=== PATIENT | female | born 1985 | race Caucasian/White ===

== ENCOUNTER → 2016-08-09 | Outpatient (CLI) | payer OTHER ==
[~2016-08-09] MED LIST: AZIT500T3 PO; CHLO1TAB47
== END | disposition home or self-care (01) ==
LOC: C.PAPS 09:28
PROVIDERS: ATTEND Obstetrics & Gynecology
DX: Z01.411 Encounter for gynecological examination (general) (routine) with abnormal findings (principal); R87.610 Atypical squamous cells of undetermined significance on cytologic smear of cervix (ASC-US)

== ENCOUNTER → 2017-01-05 | Outpatient (CLI) | payer OTHER | END | disposition home or self-care (01) | LOC: C.LAB 19:14 | DX: Z02.83 Encounter for blood-alcohol and blood-drug test (principal) ==

== ENCOUNTER 2022-08-26 00:38 | Inpatient (IN) ==
[2022-08-26] MEDS ORDERED: PENICILLIN G POTASSIUM 6 MU in DEXTROSE 5% 250 ML IV STA (01:24)
[2022-08-26] MEDS ORDERED: OXYTOCIN 30 UNITS/500 ML BAG IV PRN ×3 (01:24→08:50)
[2022-08-26] MEDS ORDERED: LIDOCAINE 1% LOCAL 20 ML VIAL INFIL PRN (01:24)
[2022-08-26] MEDS: LACTATED RINGER'S 1,000 ML IV PRN ×2 (01:24→02:20)
[2022-08-26] MEDS ORDERED: ePHEDrine sulfate 50 MG/ML AMP ONE (01:31)
[2022-08-26] MEDS ORDERED: fentaNYL citrate 100 MCG/2 ML VIAL ONE (01:32)
[2022-08-26] MEDS ORDERED: BUPIVACAINE 0.25% 30 ML VIAL ONE (01:32)
[2022-08-26] MEDS ORDERED: SODIUM CHLORIDE 0.9% INJ 10 ML VIAL ONE (01:32)
[2022-08-26] MEDS ORDERED: LIDOCAINE 2%/EPINEPHRINE 1:200,000 20 ML SDV ONE (01:32)
[2022-08-26] MEDS ORDERED: fentaNYL 2MCG/ML ROPIVACAINE 1.25MG/ML 100 ML BAG EPI ONE (01:32)
--- NOTE | 2022-08-26 01:39 | History & Physical Report ---
Date of Service August 26, 2022 Assessment & Plan (1) Twin : (2) Supervision of elderly multigravida: (3) SROM (spontaneous rupture of membranes): Plan di/di twin at 36 weeks by good dating with srom and labor. with two previous vaginal deliveries. new fob. Patient has always been desirous of a vaginal delivery. Right now they are vertex/vertex. Offered primary c/s, declines. Will plan for attempt at vaginal delivery with a double set up in the OR. Will have second provider here to run the ultrasound and assist should c/s become necessary. fetus category one x 2. Babies are very concordant in growth with baby A just slightly larger than B. Discussed the issues associated with delivery of baby B--hopefully will guide cephalic into the pelvis, arom and then deliver vaginally. HOwever, if baby flips breech and /or nrfht of baby B after delivery or during delivery of baby A, would proceed with potentially urgent/emergent c/s. That may mean general anesthesia where fob could not be present. Discussed that I do not do breech extraction. Patient and fob accept the potential limitations of above and agree to proceed with attempt at vaginal delivery. The risks of a c/s were discussed with the patient including anesthesia, bleeding, transfusion, infection, poor wound healing, damage to surrounding structures, need for further surgery, injury to the baby. Peds is aware. Would be too late for transfer at this point. Questions asked and answered to the best of my ability. History of Present Illness Chief Complaint: rom, twins Primary Care Provider: Todd Weiner, Patient is a 38yowf who presents to labor and delivery with di/di twins at 36 1/7 weeks who presents to labor and delivery with gross rupture, clear around 12:30. Notes onset of contractions. Was 3-4cm in the office at last check. Last formal ultrasound A--cephalic, ac 50, efw 32%, 1979gm, 4#10oz B--cephalic, ac 14, efw 16%, 1840fm, 4#6oz and Delivery Plans AMA Weekly NST's @ 36 weeks DI/DI Twins *Baby ASA daily start 12-28wks until delivery *Anatomy scan @20wks *Serial growth US/S starting @24wks *Wkly NST's @32wks, twice wkly @36wks(nml growth) *Twice wkly NST's @32wks, ICSI or abnml growth *MD visits Q2wks @24wks & Qwk @32wks *DI/DI Deliver @38wks -IOL 09/11/22 with [place] Hyperechoic area near diaphragm on anatomy scan baby A *MFM consult - rec cfdna (low risk), cf, CMV titers, toxo titers - ordered 06/07, all negative -f/u anatomy in 4 wks--stable at 28 weeks Resolved - Polyhydramniosbaby B (8.2 at 28 weeks) baby A ? absent CSP mfm recommend MRI - Scheduled on 08/02 small but present CSP, and the other baby has ?small bowel calcifications abdominal US recommended for the bowel findings New fob in this OB Labs: Blood Type A Positive 02/14/22 Antibody Screen NEGATIVE 02/14/22 Hemoglobin 11.8 g/dl (12.0-16.0) L 07/06/22 Hematocrit 34.3 % (34.1-44.9) 07/06/22 Mean Corpuscular Volume 88.7 fL (80.0-100.0) 02/14/22 Platelet Count 331 K/uL (130-400) 02/14/22 Rubella IgG Antibody Immune (Immune) 02/14/22 Rapid Plasma Reagin Nonreactive (Nonreactive) 02/14/22 Hepatitis B Surface Antigen Neg (Neg) 05/28/19 Hepatitis B Surface Antigen. NON-REACTIVE (NON-REACTIVE) 02/14/22 Hepatitis C Antibody Neg (Neg) 05/28/19 Hepatitis C Antibody (EIA) NON-REACTIVE (NON-REACTIVE) 02/14/22 HIV (1&2) Ab and P24 Ag, 4th Gener Neg (Neg) 05/28/19 HIV (1&2) Ag and Ab Confirmation NON-REACTIVE (NON-REACTIVE) 02/14/22 Glucose 1 Hour 50 gm Load 139 mg/dl (70-130) H 04/12/22 OB Optional Labs: Chlamydia trachomatis RNA NOT DETECTED (NOT DETECTED) 02/14/22 Neisseria gonorrhoeae RNA NOT DETECTED (NOT DETECTED) 02/14/22 Thyroid Stimulating Hormone (TSH) 1.766 uIu/ml (0.300-4.500) 02/14/22 Labs Reviewed: neg panorama x 2 cf/sma neg 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 Cough Diarrhea Fever and chills H/O varicella Routine screening for STI (sexually transmitted infection) Streptococcus group A exposure Supervision of other normal Surgical History [place] teeth extracted Family History Grandfather (Paternal) Lung cancer Denies family history of Ovarian cancer Prostate cancer Diabetes Myocardial infarction Breast cancer Colorectal cancer Social History Smoking Status: Former smoker Tobacco Type: E-cigarettes / Vaping Second Hand Exposure: No; Hx Alcohol Use: No Hx Substance Use: No Preferred Language: Polish Forging Machine Hand Required: No Beliefs That Will Affect Care: None marital status: marital status details: jordan Thomas Kevin(27) [phone] Current Living Situation: Family Current Living Situation Comment: lives with jordan, 2 children, dogs, cat-goes outside current occupational status: employed current occupation: [email or web address] Feels Safe at Home: Yes Safety Concerns: Feels Safe At This Time Childhood Exposure to Second-Hand Smoke: Yes caffeine: Yes Dental Care, Regularly: Yes Physical Activity Frequency: Daily Seatbelt Use: always Sunscreen Use: Yes Assistive Devices: None OB History Past Pregnancies Del. Date GA wks Lbr Lgth wt Sex Type del Anes Place Del Prov ? Comment 07/13/10 40 9 7-9 M [facility] Dr. Clare De Dios shortened umbilical cord 08/12/14 38 10 5-7 F [facility] Dr. Jenna De Dios GBS + Physical Exam Constitutional: WD/WN, vitals as above Gastrointestinal (Abdomen): soft, nt, gravid Psychiatric: A+Ox3, euthymic affect Genitourinary: grossly ruptured, clear fluid cx--/-2 baby a cephalic baby b cephalic by bedside ultrasound toco--q 3-5min efm a--125 with mod variability, accels to 150s, no decels b--130s with mod variabiliy, accels to 160s, no decels. Results & Data ([facility]) Vital Signs (Past 12 Hours) Vital Signs Temp Pulse Resp BP 08/26/22 00:56 36.8 C 18 08/26/22 00:53 93 H 136/81 Coding Level of Care Code None Diagnoses Twin O30.009 Supervision of elderly multigravida O09.529 SROM (spontaneous rupture of membranes)
[2022-08-26 01:44] LABS: Hematocrit (blood only) 34.2 % (37.0-47.0); Mean Corpuscular Hemoglobin 33.2 pg (25.0-34.0); Mean Corpuscular Hgb Conc 35.1 g/dL (32.0-36.0); Mean Corpuscular Volume 94.7 fL (80.0-100.0); Mean Platelet Volume 10.1 fL (9.4-12.4); Platelet Count 234 K/uL (130-400); RDW Coefficient of Variation 12.5 % (11.5-14.5); RDW Standard Deviation 43.1 fL (36.4-46.3); Red Blood Count 3.61 M/uL (4.20-5.40)
[2022-08-26] MEDS ORDERED: NALOXONE HCL 1 MG in SODIUM CHLORIDE 0.9% 1000ML 1,000 ML IV PRN (01:48)
[2022-08-26] MEDS ORDERED: diphenhydrAMINE 50 MG/ML VIAL IV PRN (01:48)
[2022-08-26] MEDS ORDERED: NALBUPHINE HCL INJ 10 MG/ML AMP IV PRN (01:48)
[2022-08-26] MEDS ORDERED: NALOXONE HCL 0.4 MG/1 ML VIAL/CARP IV PRN (01:48)
[2022-08-26] MEDS ORDERED: fentaNYL 2MCG/ML ROPIVACAINE 1.25MG/ML 100 ML BAG EPI PRN (01:48)
[2022-08-26] MEDS ORDERED: ePHEDrine sulfate 50 MG/ML AMP IV PRN (01:48)
--- NOTE | 2022-08-26 01:48 | Anesthesiology Consultation ---
Date of Service August 26, 2022 Assessment & Plan (1) Encounter for pre-operative examination: Chart Review Chart Review: Patient NOT seen in Pre Admission Testing and Acceptable Risk for Labor Epidural Consults Requested none History Height/Weight Height: 5 ft 4 in Weight: 68.946 kg Allergies Allergy/AdvReac Type Severity Reaction Status Date / Time atomoxetine AdvReac Mild Joint Pain Verified 08/26/22 00:56 Medications Home Medications Medication Instructions Recorded Confirmed Last Taken vit no.95-ferrous 1 tab PO DAILY 06/07/18 08/26/22 08/24/22 fumarate 28 mg-folic acid 800 mcg tablet () aspirin 81 mg chewable tablet 81 mg PO DAILY 08/02/22 08/26/22 08/24/22 sertraline 25 mg tablet 25 mg PO DAILY #90 tabs 08/02/22 08/26/22 08/24/22 Active Medications Generic Name Dose Route Start Last Admin Trade Name Freq PRN Reason Stop Dose Admin Lactated Ringer's 1,000 mls @ 125 mls/hr 08/26/22 01:24 08/26/22 01:24 Lr IV 08/28/22 01:23 999 mls/hr .Q8H PRN Administration L&D Protocol Protocol Past Medical History Medical History 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 Cough Diarrhea Fever and chills H/O varicella Routine screening for STI (sexually transmitted infection) Streptococcus group A exposure Supervision of other normal Past Family History Family History Grandfather (Paternal) Lung cancer Denies family history of Ovarian cancer Prostate cancer Diabetes Myocardial infarction Breast cancer Colorectal cancer Past Surgical History Surgical History [place] teeth extracted Social History Smoking Status: Former smoker Hx Alcohol Use: No Hx Substance Use: No substance use type: does not use Physical Exam Vital Signs Last Vital Signs Temp 98.2 F 08/26/22 00:56 Pulse 93 H 08/26/22 00:53 Resp 18 08/26/22 00:56 BP 136/81 08/26/22 00:53 Testing Laboratory Results 08/26/22 01:34
--- NOTE | 2022-08-26 03:07 | Labor Progress Brief Note ---
Date of Service August 26, 2022 Subjective comfortable with epidural Assessment & Plan (1) SROM (spontaneous rupture of membranes): (2) Twin : Plan making slow change. Will allow expectant management at this time. fetus ca tegory 1 x 2. First dose of pcn on board. Admission and Anticipated Discharge Date Admission Date: August 26, 2022 Physical Exam Physical Exam: cx--7/100/0 toco--q3-5min efm a--130s with mod variability, rare min, accls to 150s, rare variable efm b--135 with mod variability, accels to 160s, no decels Results & Data ([facility]) Vital Signs (Past 12 Hours) Vital Signs Temp Pulse Resp BP Pulse Ox 08/26/22 00:56 36.8 C 18 08/26/22 03:03 89 99 08/26/22 03:02 81 109/69 08/26/22 02:58 86 97 08/26/22 02:55 85 114/70 08/26/22 02:53 82 97 08/26/22 02:51 90 111/69 08/26/22 02:48 78 98 08/26/22 02:46 82 119/69 08/26/22 02:43 81 98 08/26/22 02:42 78 103/68 08/26/22 02:38 82 98 08/26/22 02:35 82 115/70 08/26/22 02:33 84 98 08/26/22 02:12 18 08/26/22 02:12 18 08/26/22 02:20 20 08/26/22 02:20 20 08/26/22 02:30 18 08/26/22 02:30 36.8 C 18 08/26/22 02:31 84 116/71 08/26/22 02:28 91 H 99 08/26/22 02:25 87 113/73 08/26/22 02:23 85 115/73 98 08/26/22 02:21 81 111/70 08/26/22 02:19 83 122/76 08/26/22 02:18 83 99 08/26/22 02:17 82 113/76 08/26/22 02:15 86 118/79 08/26/22 02:13 87 121/76 100 08/26/22 02:08 84 98 08/26/22 02:03 92 H 99 08/26/22 01:58 104 H 99 08/26/22 00:53 93 H 136/81 Coding Level of Care Code None Diagnoses SROM (spontaneous rupture of membranes) Twin O30.009
[2022-08-26] MEDS ORDERED: PENICILLIN G POTASSIUM 3 MU in DEXTROSE 5% 100 ML IV PRN (04:24)
--- NOTE | 2022-08-26 04:36 | Labor Progress Brief Note ---
Date of Service August 26, 2022 Subjective comfortable Assessment & Plan (1) SROM (spontaneous rupture of membranes): (2) Twin : Plan: making change, continue expectant management. fetus category one x 2. Admission and Anticipated Discharge Date Admission Date: August 26, 2022 Physical Exam Physical Exam: cx--8-9/100/0 toco--q3-5min efm-- a--130s wtih mod variability, accels to 150s, rare ariable efm b--130s wtih mod variability, accels to 160s, no decels Results & Data ([facility]) Vital Signs (Past 12 Hours) Vital Signs Temp Pulse Resp BP Pulse Ox 08/26/22 00:56 36.8 C 18 08/26/22 04:33 82 97 08/26/22 04:28 78 97 08/26/22 04:29 70 109/65 08/26/22 04:23 81 95 08/26/22 04:18 82 96 08/26/22 04:14 79 99/58 L 08/26/22 04:13 82 97 08/26/22 04:08 85 96 08/26/22 04:03 85 96 08/26/22 03:58 86 97 08/26/22 03:57 84 100/58 L 08/26/22 03:53 82 96 08/26/22 03:50 81 103/58 L 08/26/22 03:48 83 96 08/26/22 03:45 90 102/62 08/26/22 03:43 86 96 08/26/22 03:42 78 102/59 L 08/26/22 03:38 79 96 08/26/22 03:35 82 100/62 08/26/22 03:33 81 97 08/26/22 03:30 83 109/66 08/26/22 03:28 85 97 08/26/22 03:26 78 105/63 08/26/22 03:23 95 H 97 08/26/22 03:20 81 111/63 08/26/22 03:18 88 97 08/26/22 03:16 81 110/56 L 08/26/22 03:13 85 97 08/26/22 03:10 82 110/67 08/26/22 03:08 82 97 08/26/22 03:06 83 114/67 08/26/22 03:03 89 99 08/26/22 03:02 81 109/69 08/26/22 02:58 86 97 08/26/22 02:55 85 114/70 08/26/22 02:53 82 97 08/26/22 02:51 90 111/69 08/26/22 02:48 78 98 08/26/22 02:46 82 119/69 08/26/22 02:43 81 98 08/26/22 02:42 78 103/68 08/26/22 02:38 82 98 08/26/22 02:35 82 115/70 08/26/22 02:33 84 98 08/26/22 02:12 18 08/26/22 02:12 18 08/26/22 02:20 20 08/26/22 02:20 20 08/26/22 02:30 18 08/26/22 02:30 36.8 C 18 08/26/22 02:31 84 116/71 08/26/22 02:28 91 H 99 08/26/22 02:25 87 113/73 08/26/22 02:23 85 115/73 98 08/26/22 02:21 81 111/70 08/26/22 02:19 83 122/76 08/26/22 02:18 83 99 08/26/22 02:17 82 113/76 08/26/22 02:15 86 118/79 08/26/22 02:13 87 121/76 100 08/26/22 02:08 84 98 08/26/22 02:03 92 H 99 08/26/22 01:58 104 H 99 08/26/22 00:53 93 H 136/81 Coding Level of Care Code None Diagnoses SROM (spontaneous rupture of membranes) Twin O30.009
--- NOTE | 2022-08-26 06:13 | Labor Progress Brief Note ---
Date of Service August 26, 2022 Subjective comfortable Assessment & Plan (1) Twin : Plan transfer to or for delivery. fetus category 1 x 2 Admission and Anticipated Discharge Date Admission Date: August 26, 2022 Physical Exam Physical Exam: cx--ant lip/+1 toco--q2-4min efm-- a --130s mod variability, accels present, occasional variable decel efm b-- 140s with mod variability, accels to 160s, no decels Results & Data ([facility]) Vital Signs (Past 12 Hours) Vital Signs Temp Pulse Resp BP Pulse Ox 08/26/22 05:30 18 08/26/22 04:30 16 08/26/22 04:00 18 08/26/22 03:45 16 08/26/22 03:30 18 08/26/22 03:15 20 08/26/22 03:00 18 08/26/22 02:45 18 08/26/22 05:00 20 08/26/22 00:56 36.8 C 18 08/26/22 06:08 78 99 08/26/22 06:00 20 08/26/22 06:00 20 08/26/22 06:03 97 08/26/22 06:03 78 08/26/22 06:03 78 119/58 L 08/26/22 05:58 78 97 08/26/22 05:53 76 98 08/26/22 05:48 77 97 08/26/22 05:43 75 97 08/26/22 05:44 71 112/70 08/26/22 05:38 74 98 08/26/22 05:33 75 97 08/26/22 05:28 90 96 08/26/22 05:29 86 118/64 08/26/22 05:23 83 96 08/26/22 05:18 81 96 08/26/22 05:13 81 96 08/26/22 05:14 72 109/57 L 08/26/22 05:08 79 97 08/26/22 05:03 79 97 08/26/22 04:58 76 97 08/26/22 04:59 75 105/62 08/26/22 04:53 80 97 08/26/22 04:48 77 97 08/26/22 04:43 78 97 08/26/22 04:44 75 107/66 08/26/22 04:38 79 98 08/26/22 04:33 82 97 08/26/22 04:28 78 97 08/26/22 04:29 70 109/65 08/26/22 04:23 81 95 08/26/22 04:18 82 96 08/26/22 04:14 79 99/58 L 08/26/22 04:13 82 97 08/26/22 04:08 85 96 08/26/22 04:03 85 96 08/26/22 03:58 86 97 08/26/22 03:57 84 100/58 L 08/26/22 03:53 82 96 08/26/22 03:50 81 103/58 L 08/26/22 03:48 83 96 08/26/22 03:45 90 102/62 08/26/22 03:43 86 96 08/26/22 03:42 78 102/59 L 08/26/22 03:38 79 96 08/26/22 03:35 82 100/62 08/26/22 03:33 81 97 08/26/22 03:30 83 109/66 08/26/22 03:28 85 97 08/26/22 03:26 78 105/63 08/26/22 03:23 95 H 97 08/26/22 03:20 81 111/63 08/26/22 03:18 88 97 08/26/22 03:16 81 110/56 L 08/26/22 03:13 85 97 08/26/22 03:10 82 110/67 08/26/22 03:08 82 97 08/26/22 03:06 83 114/67 08/26/22 03:03 89 99 08/26/22 03:02 81 109/69 08/26/22 02:58 86 97 08/26/22 02:55 85 114/70 08/26/22 02:53 82 97 08/26/22 02:51 90 111/69 08/26/22 02:48 78 98 08/26/22 02:46 82 119/69 08/26/22 02:43 81 98 08/26/22 02:42 78 103/68 08/26/22 02:38 82 98 08/26/22 02:35 82 115/70 08/26/22 02:33 84 98 08/26/22 02:12 18 08/26/22 02:12 18 08/26/22 02:20 20 08/26/22 02:20 20 08/26/22 02:30 18 08/26/22 02:30 36.8 C 18 08/26/22 02:31 84 116/71 08/26/22 02:28 91 H 99 08/26/22 02:25 87 113/73 08/26/22 02:23 85 115/73 98 08/26/22 02:21 81 111/70 08/26/22 02:19 83 122/76 08/26/22 02:18 83 99 08/26/22 02:17 82 113/76 08/26/22 02:15 86 118/79 08/26/22 02:13 87 121/76 100 08/26/22 02:08 84 98 08/26/22 02:03 92 H 99 08/26/22 01:58 104 H 99 08/26/22 00:53 93 H 136/81 Coding Level of Care Code None Diagnoses Twin O30.009
[2022-08-26] MEDS ORDERED: oxyCODONE/ACETAMINOPHEN 5mg/325mg TAB PO PRN (08:50)
[2022-08-26] MEDS ORDERED: BENZOCAINE 20% AER SPR 82.5 GM CAN EXT PRN (08:50)
[2022-08-26] MEDS ORDERED: HYDROCORTISONE ACETATE 25 MG SUPP PR PRN (08:50)
[2022-08-26] MEDS ORDERED: DIPHTHERIA/TETANUS/PERTUSSIS 0.5mL SYR/VIAL (Age 7+yrs) IM ONE (08:50)
[2022-08-26] MEDS ORDERED: ACETAMINOPHEN 325 MG TAB PO PRN (08:50)
--- NOTE | 2022-08-26 09:00 | Delivery Summary ---
Vaginal Delivery Summary Date of Service August 26, 2022 Vaginal Delivery Summary (x 2, twins) and 1st Degree LAC Pre-operative Diagnosis: di/di twin at 36 1/7 weeks srom labor gbs status unknown Post-operative Diagnosis: same Procedure: epidural x 2 right labial laceration with repair EBL: 400cc Anesthesia: epidural [place] Clerk: Dr. Blake Procedure: The patient presented to labor and delivery with srom at 11:45pm. She was admitted at 6cm. GBS unknown so treated with pcn. The patient progressed spontaneously to ant lip. She was then moved to the OR for double set up delivery. The patient pushed for one contraction to deliver a viable male infant in adina position. The rest of the infant was then delivered without difficulty. The baby was vigorous. The nose and mouth were bulb suctioned and the was handed to the awaiting peds for drying and attention. Cord was clamped and cut immediately after delivery. Cord blood obtained. The second baby was delivered approximately 1hr 15 minutes after baby A. Pitocin was started to assist with contractions. After baby A delivered, Dr. Blake used the ultrasound to determine position which was cephalic and reassuring FHT. arom of bag of bab b for clear fluid. the hear tones were in the 150s with variables with contractions. The baby slowly descended into the pelvis and when the patient felt pressure to push, she pushed over two contractions to deliver another viable male in LOT position. The rest of the baby was then delivered easily. NOse and mouth were bulb suctioned. The baby was vigorous. Cord clamped and cut and handed off to awaiting peds. Placenta delivered spontaneous, intact with a three vessel cord. The placentas were noted to be fused and two amniotic sacs noted. Cervix/sulci/rectum/perineum were intact. A right labial laceration was repaired in the normal standard fashion. Hemostasis obtained with dilute pitocin and fundal massage. Apgars were 8/9 for baby A and 8/9 for baby B. Mother and babies doing well at the end of the delivery. [facility] Vaginal Delivery Charge Delivery Type Details: (x 2, twins) and 1st Degree LAC
--- NOTE | 2022-08-26 10:50 | Anesthesia Procedure Note ---
Date of Service August 26, 2022 Anesthesia Post Epidural Note Vital Signs Vital Signs: Temp Pulse Resp BP Pulse Ox 36.9 C 95 H 18 118/72 98 08/26/22 09:00 08/26/22 10:44 08/26/22 09:00 08/26/22 10:44 08/26/22 06:48 Pain Intensity Lower Abdomen: Pain Intensity: 0 Notes Mental Status: alert / awake / arousable and participated in evaluation Nausea / Vomiting: adequately controlled Pain: adequately controlled Airway Patency, RR, SpO2: stable & adequate BP & HR: stable & adequate Hydration State: stable & adequate Neuraxial Anesthesia: was administered and sensory block is resolving Anesthetic Complications: no major complications apparent Epidural: Removed without complications and With tip intact
[2022-08-26] MEDS: IBUPROFEN 600 MG TAB PO PRN (20:13)
[2022-08-26] MEDS: DOCUSATE SODIUM 100 MG CAP PO SCH (20:13)
[2022-08-27] MEDS: IBUPROFEN 600 MG TAB PO PRN (00:59)
[2022-08-27] MEDS ORDERED: diphenhydrAMINE Capsule 25 MG CAP PO ONE (03:43)
[2022-08-27] MEDS ORDERED: diphenhydrAMINE Capsule 25 MG CAP ONE (03:47)
--- NOTE | 2022-08-27 06:02 | Obstetrical Progress Note ---
Date of Service August 27, 2022 Assessment & Plan (1) Spontaneous vaginal delivery: (2) Facial droop: Plan Currently concerned about her facial droop. Suspect left Whitney's palsy as this can be common in the third trimester and the first week pp, but of course stroke cannot be ruled out. Plan urgent consult to medicine to determine need for head CT. Otherwise, routine pp day one . Babies are both breast feeding and in the room with mom. Day #:: 1 Subjective Ambulation: ambulating normally Voiding: no voiding problems Passing Gas:: Yes Diet Tolerance:: regular diet Lochia:: Small Feeding Type:: breast feeding I was called to see patient because nursing noted some dropping of the left side of her face. She noted the onset of some numbness in her lips at about two am. Was given some benadryl. Did not really help. Then nursing noted that the right side of her face appears droopy. Patient notes no pain, no gomez, notes lips are numb all the way around. Notes some discomfort on the back side of her head, no pain in her face. Physical Exam Constitutional WD/WN, vitals as above Gastrointestinal (Abdomen) soft, nt, nd, ff/ at u Skin no rashes, warm and dry Neurologic When patient is asked to give a big smile, the left side of her mouth does not rise. she is able to close her left eye but it appears more open than the right. Can tightly close both. Able to raise both eyebrows but left seems a little lower. Notes sensation on both sides of her face is normal. Is able to stick her tongue out and it is straight, able to move to the right and left. Can move her head to the left and right and strength the same. Can shrug both shoulders equally. Sensation in the upper and lower extremity are equal. 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 Stands without swaying. Results & Data ([facility]) Vital Signs (Past 12 Hours) Vital Signs Temp Pulse Pulse Resp BP Pulse Ox O2 Del Method 08/27/22 03:43 36.4 C L 79 16 133/83 97 Room Air 08/27/22 00:50 36.5 C 90 18 141/92 H 08/26/22 20:00 36.8 C 78 18 128/74
--- NOTE | 2022-08-27 06:53 | CT Scan Report ---
CT head/brain wo con CLINICAL HISTORY: 37 years-old Female with L face droop, numb tongue and lips. Acute strokelike symp toms TECHNIQUE: Multiple axial CT images of the head were obtained without contrast. A dose lowering tech nique was utilized adhering to the principles of ALARA. CT DOSE: 537.48 mGy.cm COMPARISON: None. FINDINGS: No acute intracranial hemorrhage, midline shift, intracranial mass, hydrocephalus, territorial ischem ia or abnormal extra-axial collection. The calvarium is intact. The paranasal sinuses, mastoid air cells, and middle ear cavities are clear . IMPRESSION: No acute intracranial abnormality. ACT 112: Negative or not required by law. The above report was generated using voice recognition software. It may contain grammatical, syntax o r spelling errors. Electronically signed by: Rohan Francois M.D. 08/27/2022 6:51 AM
[2022-08-27 07:09] LABS: Basophils # (auto) 0.06 K/uL (0-0.2); Basophils % (auto) 0.7 %; Eosinophils # (auto) 0.04 K/uL (0-0.50); Eosinophils % (auto) 0.4 %; Hematocrit (blood only) 33.8 % (37.0-47.0); Hemoglobin 11.8 g/dl (12.0-16.0); Immature Granulocytes # (auto) 0.14 K/uL (0.01-0.20); Immature Granulocytes % (auto) 1.5 %; Lymphocytes # (auto) 2.61 K/uL (1.2-3.4); Lymphocytes % (auto) 28.6 %; Mean Corpuscular Hemoglobin 33.5 pg (25.0-34.0); Mean Corpuscular Hgb Conc 34.9 g/dL (32.0-36.0); Monocytes # (auto) 0.57 K/uL (0.11-0.59); Monocytes % (auto) 6.3 %; Neutrophils # (auto) 5.69 K/uL (1.40-6.50); Neutrophils % (auto) 62.5 %; Platelet Count 237 K/uL (130-400); RDW Standard Deviation 44.9 fL (36.4-46.3); Red Blood Count 3.52 M/uL (4.20-5.40); White Blood Count 9.11 K/ul (4.8-10.8)
--- NOTE | 2022-08-27 07:15 | Hospitalist Consultation ---
Date of Consultation August 27, 2022 Assessment & Plan (1) Facial droop: Trinh is a 37 year old female w/ PmHx anxiety, post day 1 di/diamniotic twin vaginal delivery w/ new onset L sided facial drooping. Facial droop: -New onset, no past history of facial droop, clots, stroke. -Blood pressures since delivery have remained in good range <150/<93. -No other focal deficits however w/ mix of cranial nerve symptoms at initial onset concern for possible stroke. -CT Head w/o contrast negative for any acute intracranial bleed. -No issues w/ breast feeding, less likely Jeff syndrome. 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 -Pending PT/INR, CMP, lipid profile and A1c. -Would treat w/ prednisone 60mg daily for 5-7 days. Thank you for this interesting consult. History of Present Illness Reason for Consultation: L sided facial droop Requesting Physician: Dr. Montes Attending Physician: Camila Montes MD, FACOG History of Present Illness Trinh is a 37 year old female w/ PmHx anxiety consulted for new onset L sided facial droop. Patient was seen at the bedside around 6AM this morning. Patient relayed she was brushing her teeth around midnight when she started to develop sensation of numbness on the inside of her mouth and tongue. She says afterwards the numbness shifted into L sided facial drooping as well as eye watering without any other associated symptoms of focal weakness or numbness/tingling at the extremities, changes in vision, hearing, headaches, memory or mental status issues, nor any issues with breast feeding. She states she does not have any past history of any clots or strokes, no known family history of any strokes/CVA events. Patient states she did not have any leg pain prior to the event. She did not endorse any pain except for some cramping at the pelvic region from the vaginal delivery. 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 Cough Diarrhea Fever and chills H/O varicella Routine screening for STI (sexually transmitted infection) Streptococcus group A exposure Supervision of other normal Surgical History [place] teeth extracted Family History Grandfather (Paternal) Lung cancer Denies family history of Ovarian cancer Prostate cancer Diabetes Myocardial infarction Breast cancer Colorectal cancer Social History Smoking Status: Former smoker Tobacco Type: E-cigarettes / Vaping Second Hand Exposure: No; Hx Alcohol Use: No Hx Substance Use: No Preferred Language: Persian Football Scout Required: No Beliefs That Will Affect Care: None marital status: marital status details: jordan Brown(27) [phone] Current Living Situation: Family Current Living Situation Comment: lives with jordan, 2 children, dogs, cat-goes outside current occupational status: employed current occupation: [employer] Feels Safe at Home: Yes Safety Concerns: Feels Safe At This Time Childhood Exposure to Second-Hand Smoke: Yes caffeine: Yes Dental Care, Regularly: Yes Physical Activity Frequency: Daily Seatbelt Use: always Sunscreen Use: Yes Assistive Devices: None Review of Systems Review of Systems: As per HPI. Physical Exam Constitutional: WD/WN, vitals as above Eyes: PERRL, conjunctivae normal, anicteric sclerae No nystagmus or saccades noted on exam. Respiratory: normal respiratory effort, lungs clear to auscultation Cardiovascular: RRR, no murmur, no edema Neurologic: Left sided facial droop at upper and lower portions of the face. Otherwise CN2-6 and 8-12 in tact bilaterally. Strength 5/5 at bilateral upper and lower extremities, no sensory defecits. Psychiatric: A+Ox3, euthymic affect Results & Data Results & Data ([facility]) Vital Signs (Past 12 Hours) Vital Signs Temp Pulse Pulse Resp BP Pulse Ox O2 Del Method 08/27/22 03:43 36.4 C L 79 16 133/83 97 Room Air 08/27/22 00:50 36.5 C 90 18 141/92 H 08/26/22 20:00 36.8 C 78 18 128/74 Resident Activity Tracking Resident Involvement: Resident Care Provided Care Provided: Adult Hospital Medicine
[2022-08-27 07:27] LABS: INR 0.9 (0.9-1.1); Partial Thromboplastin Ratio 0.9; Partial Thromboplastin Time 24.8 Seconds (21.0-31.0); Prothrombin Time 9.8 Seconds (9.0-12.0)
[2022-08-27 07:29] LABS: Albumin Globulin Ratio 1.3 (0.9-2); Albumin Level 3.1 gm/dl (3.4-5.0); BUN Creatinine Ratio 11.6 (10-20); Bilirubin,Total 0.3 mg/dl (0.2-1.0); Calcium 9.1 mg/dl (8.5-10.1); Creatinine Clr Calc Pharmacy 108.5 ml/min; Est GFR (African American) 130.7 ml/min; Est GFR (Non-African American) 112.8 ml/min; Globulin 2.3 gm/dl (2.5-4.0); Magnesium 1.7 mg/dl (1.7-2.4); Potassium 3.9 mmol/L (3.5-5.1); Total Protein 5.4 gm/dl (6.0-8.3)
[2022-08-27] MEDS ORDERED: ARTIFICIAL TEARS OP PRN (07:41)
[2022-08-27] MEDS: DOCUSATE SODIUM 100 MG CAP PO SCH ×2 (07:58→21:00)
[2022-08-27] MEDS: PRENATAL VITAMIN 1 TAB PO SCH (08:40)
[2022-08-27 09:16] LABS: Estimated Average Glucose 100 mg/dl; Hemoglobin A1C 5.1 % (4.5-5.6)
--- NOTE | 2022-08-27 09:21 | Medical Student H&P ---
Date of Service August 27, 2022 Assessment & Plan (1) Facial droop: Plan: Summary: Trinh is a 37 year old female with no significant past medical history, status 1 day post uncomplicated vaginal delivery of twins consulted for new onset left sided facial droop. Her presentation is most concerning for Whitney's palsy, due to proximity of symptom onset to time since delivery. DDx: Lyme disease is also possible due to living in endemic area, but she has no known history of infection or tick bite. Herpes zoster oticus ([place] Joyce syndrome) may also be possible, but she has no known history of HSV and does not report ear pain or vesicles. Additionally, however unlikely due to her age, her lack of concerning past medical history and lack of risk factors, her cranial nerve symptoms and facial weakness could indicate possible facial nerve nucleus/facial nerve tract stroke. However, head/brain CT results were reassuring. Assessment/Plan 1. L facial droop- suspect due to Whitney's palsy - House-Brackmann classification of facial nerve dysfunction grade III (moderate dysfunction) - No reported headache, vision changes, systemic symptoms, mental status changes, or other acute changes. without concern. - Motor function diminished in upper and lower left side of face, no other focal neurological deficits - Brain/Head CT w/o contrast negative for any acute intracranial bleed - Treat with prednisone (60 to 80 mg/day) for one week - Additionally, PRN artificial tears to avoid ocular injury - Continue to monitor Admission and Anticipated Discharge Date Admission Date: August 26, 2022 History of Present Illness Chief Complaint: L facial droop Primary Care Provider: Todd Weiner DO Trinh is a 37 year old female with no significant past medical history, status 1 day post uncomplicated vaginal delivery of twins consulted for new onset left sided facial droop. She was seen at the bedside at 0715 AM today, August 27. She reported feeling numbness inside her mouth and tongue after brushing her teeth around midnight. By 0200, the left side of her face began to droop and her right eye began to water. Symptoms progressed to upper (forehead/eyelid) and lower (mouth) regions of the face over the course of a few hours. She did not report any pain, right sided facial symptoms, headache, changes in cognition, facial swelling, rash, cervical adenopathy, changes in vision or taste, difficulty swallowing, or weakness. Her pain was limited to a minor ache behind her left ear and some cramping at the pelvic region following the vaginal delivery. Her was uncomplicated, she took 81 mg aspirin throughout, and delivery was at 36 weeks by spontaneous rupture of membranes. Delivery was uncomplicated, both twins are healthy, and she is both successfully. She has a past medical history of anxiety, panic attacks, palpitations and insomnia, for which she takes sertraline 25 mg Q8H. She was seen by Neurology 10 months ago for bilateral hand and neck pain, but upon evaluation no pathology was found. She has no past medical history of Lyme disease, coagulopathy, stroke, blood clot, nor any family history of coagulopathy, stroke, or [place]. 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 Cough Diarrhea Fever and chills H/O varicella Routine screening for STI (sexually transmitted infection) Streptococcus group A exposure Supervision of other normal Surgical History [place] teeth extracted Family History Grandfather (Paternal) Lung cancer Denies family history of Ovarian cancer Prostate cancer Diabetes Myocardial infarction Breast cancer Colorectal cancer Social History Smoking Status: Former smoker Tobacco Type: E-cigarettes / Vaping Second Hand Exposure: No; Hx Alcohol Use: No Hx Substance Use: No Preferred Language: [place] [employer] Required: No Beliefs That Will Affect Care: None marital status: marital status details: jordan Brown(27) [phone] Current Living Situation: Family Current Living Situation Comment: lives with jordan, 2 children, dogs, cat-goes outside current occupational status: employed current occupation: [employer] Feels Safe at Home: Yes Childhood Exposure to Second-Hand Smoke: Yes caffeine: Yes Dental Care, Regularly: Yes Physical Activity Frequency: Daily Seatbelt Use: always Sunscreen Use: Yes Assistive Devices: None Review of Systems Per HPI. Physical Exam Constitutional: well developed and well nourished; no acute distress Eyes: normal visual atkinson by confrontation, PERRL, normal accommodation, EOM intact bilaterally, reactive pupils and + photophobia; no EOM movement deficit and no nystagmus ENMT: Throat: uvula midline Neck: normal visual inspection and trachea midline; no anterior neck swelling, neck nontender and no nuchal rigidity Musculoskeletal: Head/Neck/Chest: normocephalic, head atraumatic, neck supple and + scalp tenderness Extremities: extremities normal to inspection and strength 5/5 throughout Gait: normal gait Skin: no rashes, warm and dry Neurologic: normal touch/pain/proprioception, CN's II-XI intact bilaterally, moves all extremities and awake; no focal motor deficits Motor/Sensory: normal movement and no sensory deficit Cranial Nerves: normal accommodation, EOM intact bilaterally, normal facial strength, tongue midline, normal hearing, able to rotate head bilaterally, able to elevate shoulders bilaterally, no nystagmus and symmetric palate elevation Psychiatric: Orientation: alert and oriented x 3 Eye Contact: good eye contact Motor Behavior: no abnormal motor movements Speech: normal rate/rhythm/volume of speech Affect: euthymic affect Thought Process: linear/logical thought process and clear/coherent thought process Cognition: recent memory grossly intact, attention grossly intact and language grossly intact Insight: good insight Judgment: good judgement Results & Data ([facility] [place]) Vital Signs (Past 12 Hours) Vital Signs Temp Pulse Pulse Resp BP Pulse Ox O2 Del Method 08/27/22 07:56 36.5 C 96 H 20 128/90 97 Room Air 08/27/22 03:43 36.4 C L 79 16 133/83 97 Room Air 08/27/22 00:50 36.5 C 90 18 141/92 H Supervising Attestation Medical Student Supervision Note: I was personally present during medical student patient encounter and independently interviewed and examined the patient and verified the colin history and physical, reviewed labs and image studies, discussed the case with Radha Rivas and agree with the findings and care plan. 37 y/o F, 1 days with sudden onset of left sided facial droop. Did have numbness while brushing on left side of her mouth a day ago. Had head CT - negative. Unable to completely close her left eye. Exam - alert, oriented x3, neuro globally intact except facial droop on left side. [place] Palsy - started prednisone 60mgs daily for 1 wk. Prednisone safe for . Artificial tears No concern of lyme ds. Outpatient follow up with pcp.
[2022-08-27] MEDS: predniSONE 20 MG TAB PO SCH (10:04)
[2022-08-27] MEDS ORDERED: bisacodyL 5 MG TABEC PO SCH (20:00)
--- NOTE | 2022-08-28 06:19 | Obstetrical Progress Note ---
Date of Service <Bharti BriggsDO - Last Filed: 08/28/22 08:31> August 28, 2022 Assessment & Plan <Bharti BriggsDO - Last Filed: 08/28/22 08:31> (1) Status post vaginal delivery: continue OOB, ambulation, diet as tolerated - 6 week f/u for post visit (2) Whitney's palsy: - Plan for 60mg prednisone x 1 week as per medicine team - Continue with artificial tears <Tung Blake MD, FACOG - Last Filed: 08/29/22 09:11> (1) Status post vaginal delivery: (2) Whitney's palsy: Subjective <Bharti S. DO [place] - Last Filed: 08/28/22 08:31> Trinh is a 37 year old female status post vaginal delivery of di/di twins at 36 1/6 weeks. Reports feeling well overall this morning. Mild abdominal cramping, pain well managed on analgesics. Voiding. Tolerating meals overnight and able to ambulate some. Is passing gas and no bowel movements. Some persistent lochia with some improvement this morning. Breast feeding. Feels as though facial symptoms are pretty similar to yesterday. Review of Systems Denies fever, chills, sweats Denies shortness of breath, difficulty breathing, chest pain, palpitations, chest pressure. Denies breast pain. Denies dysuria. Denies headache or changes in vision. Physical Exam <Bharti BriggsDO - Last Filed: 08/28/22 08:31> General: Alert, oriented. No acute distress. Cardiac: Regular rate and rhythm, no murmurs/rubs/gallops. Respiratory: Clear to auscultation bilaterally a/p, no wheezes/rales/rhonchi. No increased work of breathing. Symmetrical chest rise. No respiratory distress. Abdomen: Soft, nontender, nondistended. Bowel sounds present. Uterus: Uterine fundus firm, palpable 3 cm below umbilicus. Lower Extremities: Mild lower extremity edema. No deep calf pain. Steve's negative bilaterally. Results & Data ([facility]) <Bharti SMariah Briggs DO - Last Filed: 08/28/22 08:31> Vital Signs (Past 12 Hours) Vital Signs Temp Pulse Resp BP 08/27/22 23:30 36.4 C L 89 18 127/87 08/27/22 21:00 36.4 C L 108 H 18 137/90 <Tung Blake MD, FACOG - Last Filed: 08/29/22 09:11> Co-Signing Physician Notes Resident Physician Supervision Note: I was present with Dr. Briggs during the history and exam. I discussed the case with the resident and agree with the findings and plan as documented in the note. Any exceptions or clarifications are listed here: [None] Documented By: Tung Blake MD, FACOG Resident Activity Tracking <Bharti Briggs DO - Last Filed: 08/28/22 08:31> Resident Involvement: Resident Care Provided Care Provided: OB Delivery (Post )
--- NOTE | 2022-08-28 07:07 | Progress Note ---
Date of Service August 28, 2022 Assessment & Plan (1) Facial droop: Plan: Previous note in error; Patient's OB history is , not Summary: Trinh is a 37 year old female with no significant past medical history, status 2 day post uncomplicated vaginal delivery of twins consulted for new onset left sided facial droop, most concerning for Whitney's palsy. DDx: Lyme disease is also possible due to living in endemic area, but she has no known history of infection or tick bite. Herpes zoster oticus ([place] Joyce syndrome) may also be possible, but she has no known history of HSV and does not report ear pain or vesicles. Additionally, however unlikely due to her age, her lack of concerning past medical history and lack of risk factors, her cranial nerve symptoms and facial weakness could indicate possible facial nerve nucleus/facial nerve tract stroke. However, head/brain CT results were reassuring. Assessment/Plan 1. L facial droop- suspect due to Whintey's palsy - House-Brackmann classification of facial nerve dysfunction grade III (moderate dysfunction) - Status unchanged from yesterday 08/27/2022, still no headache, vision changes, or other acute changes. - Motor function still diminished in upper and lower left side of face, unchanged from yesterday 08/27/2022 - Treat with prednisone (60 mg/day) for 1 week + PRN artificial tears to avoid ocular injury - Send home with an eye patch/protective eye cover d/t getting soap in eye during shower - Discharge to home and follow up outpatient in 1 week - Medicine signing off at this time. Thank you for this interesting consult. Plan - Treat with prednisone (60 mg/day) for 1 week + PRN artificial tears to avoid ocular injury - Send home with an eye patch/protective eye cover d/t getting soap in eye during shower - Discharge to home and follow up outpatient in 1 week - Medicine signing off at this time. Thank you for this interesting consult. Admission and Anticipated Discharge Date Admission Date: August 26, 2022 Supervising Physician Co-Signing Physician Notes Medical Student Supervision Note: I was personally present during medical student patient encounter and independently interviewed and examined the patient and verified the colin history and physical, reviewed labs and image studies, discussed the case with Trinh Walk and agree with the findings and care plan. Left eye felt sore this am on walking. While showering, soap irritated the left eye as well. Tolerating prednisone. o/e - No distress. AAOx3, facial exam unchanged. [place] palsy - continue prednisone for total 7 days. Left eye patching. artificial tears. outpt PCP and optometry follow up. Subjective Previous note in error; Patient's OB history is , not 08/28/22: Trinh is a 37 year old female with no significant past medical history, status 2 day post uncomplicated vaginal delivery of twins, with new onset left sided facial droop concerning for Whitney's palsy. She was seen this morning at 0815 and was ambulating without difficulty around her room while cleaning/packing up her things. She reports no changes to her symptoms since yesterday, is feeling well, and continues to breastfeed successfully. Of note, because she is unable to fully close her left eye, soap got into her eye during a shower last night, and she would like to be sent home with a protective covering for her eye to avoid further episodes of similar. She has no questions nor concerns at this time and is looking forward to returning home with her babies. Review of Systems Review of Systems: All systems reviewed & are unremarkable except as noted in HPI & below Per HPI. Physical Exam Constitutional: well developed and well nourished; no acute distress Eyes: normal visual atkinson by confrontation, PERRL, normal accommodation, EOM intact bilaterally, reactive pupils and + photophobia; no EOM movement deficit and no nystagmus ENMT: external ear and nose normal, oropharynx normal Throat: uvula midline Neck: normal visual inspection and trachea midline; no anterior neck swelling, neck nontender and no nuchal rigidity Respiratory: normal respiratory effort and able to speak in complete sentences Auscultation: lungs clear to auscultation bilaterally Cardiovascular: Rate/Rhythm: regular rate and regular rhythm Heart Sounds: normal S1 and normal S2 Extremities: + edema (trace edema) Skin: no rashes, warm and dry Neurologic: normal touch/pain/proprioception, CN's II-XI intact bilaterally, moves all extremities and awake; no focal motor deficits Motor/Sensory: normal movement and no sensory deficit Psychiatric: Orientation: alert and oriented x 3 Eye Contact: good eye contact Motor Behavior: no abnormal motor movements Speech: normal rate/rhythm/volume of speech Affect: euthymic affect Thought Process: linear/logical thought process and clear/coherent thought process Cognition: recent memory grossly intact, attention grossly intact and language grossly intact Insight: good insight Judgment: good judgement Results & Data ([facility]) Vital Signs (Past 12 Hours) Vital Signs Temp Pulse Resp BP 08/27/22 23:30 36.4 C L 89 18 127/87 08/27/22 21:00 36.4 C L 108 H 18 137/90
[2022-08-28] MEDS ORDERED: bisacodyL 10 MG SUPP PR PRN (09:00)
[2022-08-28] MEDS ORDERED: FAMOTIDINE 20 MG TAB PO SCH (09:00)
[2022-08-28] MEDS: PRENATAL VITAMIN 1 TAB PO SCH (09:22)
[2022-08-28] MEDS: DOCUSATE SODIUM 100 MG CAP PO SCH (09:22)
[2022-08-28] MEDS: predniSONE 20 MG TAB PO SCH (09:22)
[2022-08-28] MEDS ORDERED: SERTRALINE HCL 50 MG TABLET PO SCH (09:45)
== END 2022-08-28 15:13 | disposition home or self-care (01) | DRG 806 ==
LOC: OPB 00:38 → 4S1 00:39 → 4E2 12:02